=== PATIENT | male | born 1950 | race Caucasian/White ===

== ENCOUNTER 2018-09-18 05:55 | Inpatient (IN) | payer OTHER ==
[2018-09-18] MEDS ORDERED: ACETAMINOPHEN 500 MG TAB PO ONE (06:26)
[2018-09-18] MEDS ORDERED: GABAPENTIN 300 MG CAP PO ONE (06:26)
[2018-09-18] MEDS ORDERED: ceFAZolin 2 GM/DEXTROSE 100 ML IV ONE (06:26)
[2018-09-18] MEDS ORDERED: LR 1,000 ML IV ONE (06:27)
[2018-09-18] MEDS ORDERED: BUPIVACAINE 0.25% 30 ML SDV ONE (06:37)
[2018-09-18] MEDS ORDERED: BACITRACIN 50,000 UNITS/10 ML SYR IRR ONE (06:38)
[2018-09-18] MEDS ORDERED: EPINEPHrine 1 MG/ML INJ ONE (06:38)
[2018-09-18] MEDS ORDERED: CHLORHEXIDINE GLUC HIBICLENS 118 ML BTL TP ONE (06:38)
[2018-09-18] MEDS ORDERED: THROMBIN (BOVINE) 5,000 UNIT VIAL TP ONE (06:38)
[2018-09-18] MEDS ORDERED: MIDAZOLAM 2 MG/2 ML VIAL IVP ONE (06:42)
--- NOTE | 2018-09-18 06:42 | PDANEPAE ---
ANE History of Present Illness cervical radiculopathy here for acdf ANE Past Medical History - Cardiovascular History Hx Hypertension: Yes Hx Arrhythmias: No Hx Chest Pain: No Hx Coronary Artery / Peripheral Vascular Disease: No Hx CHF / Valvular Disease: No Hx Palpitations: No - Pulmonary History Hx COPD: No Hx Asthma/Reactive Airway Disease: No Hx Recent Upper Respiratory Infection: No Hx Oxygen in Use at Home: No Hx Sleep Apnea: No Sleep Apnea Screening Result - Last Documented: Negative - Neurologic History Hx Cerebrovascular Accident: No Hx Seizures: No Hx Dementia: No Neurologic History Comment: HEADACHES W/NECK - Endocrine History Hx Diabetes: No - Renal History Hx Renal Disorders: No - Liver History Hx Hepatic Disorders: No - Neurological & Psychiatric Hx Hx Neurological and Psychiatric Disorders: No - Cancer History Hx Cancer: No - Congenital Disorder History Hx Congenital Disorders: No - GI History Hx Gastrointestinal Disorders: No - Other Health History Other Health History: RHEUMATOID/OSTEO ARTHRITIS. AUTO IMMUNE NON-DISCLOSED HEPATITIS - LIVER 9 YRS AGO CLEARED SINCE. PAST DVT TIBURCIO LEGS - 10 YRS TXD W/ COUMADIN - NONE SINCE - Chronic Pain History Chronic Pain: Yes - Surgical History Prior Surgeries: CARPAL TUNNEL TIBURCIO. THUMB JOINT TIBURCIO. R SOL. HERNIA REPAIR. CATARACTS ANE Review of Systems Review of Systems: - Exercise capacity METS (RN): 5 METS ANE Patient History - Allergies Allergies/Adverse Reactions: No Known Allergies Allergy (Verified 09/18/18 06:28) - Home Medications Home Medications: Eszopiclone [Lunesta] 1.5 mg PO HS 06/18/10 [Last Taken Unknown] Etanercept [Enbrel] 50 mg SQ TU 09/09/18 [Last Taken Unknown] Ibuprofen [Motrin (*)] 400 mg PO TID PRN 09/09/18 [Last Taken Unknown] Irbesartan [Avapro 150 mg (*)] 150 mg PO DAILY 09/09/18 [Last Taken Unknown] Naproxen Sodium [Naproxen Sodium ER] 500 mg PO DAILY 09/09/18 [Last Taken Unknown] tiZANidine HCL [Zanaflex 2MG (*)] 2 - 4 mg PO TID PRN 09/09/18 [Last Taken Unknown] - NPO status NPO Status: no food or drink >8 hours - Anes Hx Anes Hx: no prior problems - Smoking Hx Smoking Status: Former smoker - Alcohol Use Alcohol Use: Occasionally - Family Anes Hx Family Anes Hx: none ANE Labs/Vital Signs - Vital Signs Vital Signs: reviewed preoperatively; see RN documention for details Height: 177.8 cm Weight: 81.647 kg ANE Physical Exam - Airway Neck exam: FROM Mallampati Score: Class 2 Mouth exam: normal dental/mouth exam Mouth image: 1 - missing - Pulmonary Pulmonary: no respiratory distress, clear to auscultation - Cardiovascular Cardiovascular: regular rate and rhythym, no murmur, rub, or gallop - ASA Status ASA Status: II ANE Anesthesia Plan Anesthesia Plan: general endotracheal anesthesia Lines/Monitors: arterial line, additional IV Total IV Anesthesia: Yes
[2018-09-18] MEDS ORDERED: PROPOFOL/EMULSION 500 MG/50 ML BOTTLE IV ONE ×2 (06:47→10:18)
[2018-09-18] MEDS ORDERED: REMIFENTANIL HCL 1 MG VIAL ONE ×2 (06:47→10:18)
[2018-09-18] MEDS ORDERED: fentaNYL 100 MCG/2 ML INJ ONE ×3 (06:47→12:34)
[2018-09-18] MEDS ORDERED: PROPOFOL 200 MG/20 ML VIAL ONE (06:47)
[2018-09-18] MEDS ORDERED: LIDOCAINE 2% 100 MG/5 ML SYR ONE (06:52)
[2018-09-18] MEDS ORDERED: ROCURONIUM 50 MG/5 ML VIAL ONE (06:52)
--- NOTE | 2018-09-18 06:55 | PDHPUP ---
History & Physical Update H&P update statement: This history and physical update is based on an assessment of the patient which was completed after admission or registration (within 24 hours), but prior to the surgery/procedure. H&P update: H&P reviewed & patient examined, no change in patient's condition since H&P completed, changes noted H&P changes: Exam. Awake. Alert. PERRL. EOMI. Facial expression symmetrical. Speech fluent. Lungs CTA. Heart RRR. DAMON, Following commands
[2018-09-18] MEDS ORDERED: PHENYLEPHRINE 10 MG/ML SDV ONE (08:31)
[2018-09-18] MEDS ORDERED: SURGIFLO MATRIX KIT WITH THROMBIN 8 ML TP ONE (09:06)
[2018-09-18] MEDS ORDERED: ACETAMINOPHEN 500 MG TAB PO PRN (12:00)
[2018-09-18] MEDS ORDERED: HYDROCODONE/APAP 5/325 TAB PO PRN (12:00)
[2018-09-18] MEDS ORDERED: ONDANSETRON 4 MG/2 ML VIAL IVP PRN ×2 (12:00→12:14)
[2018-09-18] MEDS ORDERED: NALOXONE HCL 0.4 MG/ML INJ IVP PRN (12:00)
[2018-09-18] MEDS ORDERED: oxyCODONE IR 5 MG TAB PO PRN (12:00)
[2018-09-18] MEDS ORDERED: PROMETHAZINE HCL 25 MG/ML INJ IVP PRN (12:00)
[2018-09-18] MEDS ORDERED: HYDROmorphONE/DILAUDID 2 MG/ML INJ IVP PRN (12:00)
--- NOTE | 2018-09-18 12:01 | POSTANESTH ---
Post Anesthetic Evaluation Cardiovascular Status: Normal, Stable, Similar to Pre-Op Cond Respiratory Status: Normal, Stable, Similar to Pre-op Cond. Level of Consciousness/Mental Status: Can Participate in Eval, Alert and Oriented Pain Control: Adequate, Prn Tx Ordered Nausea/Vomiting Control: Adequate, Prn Tx Ordered Complications Possibly Related to Anesthesia: None Noted
[2018-09-18] MEDS ORDERED: diphenhydrAMINE 25 MG CAP PO PRN (12:14)
[2018-09-18] MEDS ORDERED: LACTULOSE 20 GM/30 ML UDCUP PO PRN (12:14)
[2018-09-18] MEDS ORDERED: MAGNESIUM HYDROXIDE 30 ML UDCUP PO PRN (12:14)
[2018-09-18] MEDS ORDERED: BISACODYL 10 MG SUPP PR PRN (12:14)
[2018-09-18] MEDS ORDERED: POLYETHYLENE GLYCOL 3350 17 GM PKT PO PRN (12:14)
[2018-09-18] MEDS ORDERED: NS 1,000 ML IV SCH (12:15)
--- NOTE | 2018-09-18 12:23 | POSTOPPROG ---
Post Op Note Date of Operation: 09/18/18 Surgeon: Luciana Feliz Oil Pumper: Heather Valera PA-C Anesthesiologist: Dr Coronado Anesthesia: GET(General Endotracheal) Pre-op Diagnosis: cervical stenosis Post-op Diagnosis: cervical stenosis Procedure: ACDF C4-7 Inf/Abcess present in the surg proc area at time of surgery?: No Depth: Deep Incisional (Fascial) EBL: Minimal Drains: Chapito Cano Plan Plan: 68 yo male s/p ACDF C4-7 - neuro checks - pain control - advance diet as tolerated - JEAN PAUL drain - postop C-spine x-rays pending - hard collar - PT/OT/CONSTRUCTION PROJECT MGR - SCDs/TEDs, Lovenox to start POD#3 Exam Awake. Alert Following commands Muscle strength at 5/5 except for right deltoid at 4/5 Incision with dressing c/d/i
[2018-09-18] MEDS: fentaNYL 100 MCG/2 ML INJ IVP PRN ×2 (12:35→13:05)
[2018-09-18] MEDS ORDERED: METHOCARBAMOL 750 MG TAB ONE (12:52)
[2018-09-18] MEDS: METHOCARBAMOL 750 MG TAB PO PRN ×2 (13:18→19:55)
--- NOTE | 2018-09-18 13:25 | GOP ---
[f rep st] OPERATIVE REPORT DATE OF OPERATION: 09/18/2018 SURGEON: Luciana Feliz DO BIRTHING NURSE: Heather Valera PA-C. PREOPERATIVE DIAGNOSIS: 1. Cervical spondylitic myelopathy. 2. Cervical stenosis. POSTOPERATIVE DIAGNOSIS: 1. Cervical spondylitic myelopathy. 2. Cervical stenosis. PROCEDURE PERFORMED: 1. C3-4, C4-5, C5-6 anterior cervical diskectomies, interbody fusion with Medtronic anatomic pure ti tanium coated (PTC) interbody graft 9 x14 x 11 at C4-5, 8 x 14 x 11 at C5-6, 9 x 14 x 11 at C6-7, wit h anterior cervical plating C4-C7, with Medtronic Zevo plate 59 mm plate and three 5 x 13 mm screws a t C4, three 5 x 15 mm screws at C5, C6 and C7. 2. Autograft. 3. Microscope. FINDINGS: SPECIMENS: None. ESTIMATED BLOOD LOSS: 40 mL. INDICATIONS: This is a 68-year-old male with cervical spondylitic myelopathy with some weakness in h is arm, neck pain and arm pain, who has failed conservative management. Elected to move forward with L4-5, 5-6, 6-7 ACDF. He also has degenerative disk disease at 3-4, but is not symptomatic and this is less stenotic, elected as that would be a larger surgery for this patient who was already at risk for pseudoarthrosis secondary to RA and chronic biologic, as well as NSAID use. DESCRIPTION OF PROCEDURE: He was identified, consented. Sites were marked. Brought to the operatin g room, anesthetized under general endotracheal anesthesia. Pre-positioning and post-positioning bas elines were performed and were stable. Interscapular roll was placed. Head was placed in a Torres horseshoe in a neutral position. Shoulders were taped down and x-ray was taken, with an 18-gauge bl unt needle taped to the skin for the incision site. He was prepped and draped in the usual sterile f ashion. Incision was anesthetized with 0.25% Marcaine with epinephrine. Incision was made with a #1 0 blade. Hemostasis was obtained with bipolar cautery, dissecting through the platysma with Metjean-claude um scissors. We came along the medial border of the SCM, using the handheld Cloward, retracted the t rachea and esophagus medially, coming down to the prevertebral fascia. Cleared this with Kittners an d placed a bayoneted spinal needle. We were then at the C5-6 level. This was marked with a Bovie. We dissected upward and with a bayoneted spinal needle marked the C4-5, and then dissected down using Kittners, protecting with the Cloward bilaterally marked the C6-7 level. We then measured and place d a Shadow-Line retractor, placed 16 mm Grafton pins at C4 and C5, verified with the OR in the appropr iate position under x-ray. We placed it under distraction, brought in the microscope. Using the hig h-speed drill, drilled down the osteophytes being careful not to address any osteophytes at the 3-4 l evel secondary to not wanting to disturb or accelerate any further degenerative disease here. We fla ttened the osteophytes out and then used a high-speed drill to remove the disk and cartilaginous endp late coming down on the posterior longitudinal ligament, which was opened with a micro upgoing curett e. This was extended with a 1 Kerrison and then the 2 Koros were used to remove disk and osteophyte off the superior and inferior endplate and out bilateral lateral foramina until they were well decomp ressed, preserving the vascular layer above the nerve roots bilaterally. We then harvested autograft and measured a 9 x 14 x 11 graft with a trial and then packed this with the patient's own bone. We had sufficient bone. We tamped the graft into place. Under x-ray it was in good position. Neuro mo nitor remained stable. We then removed the Grafton pin superiorly, plugged the hole with a Gelfoam bu llet. We then moved the retractors down to the 4-5 level, placed the Grafton pin at 4-5, and took an x-ray, verifying it was in the appropriate position. Placed the patient under distraction, used a high-spee d drill to remove the anterior osteophytes and the disk and cartilaginous endplate from the superior and inferior endplates and opened the posterior longitudinal ligament with a micro upgoing curette. Extended this with a 1 Kerrison and used 2 Koros to remove the disk and osteophyte from the superior and inferior endplates and out bilateral lateral foramina. It should be noted that he was particular ly sensitive at this level, but neuro monitoring we stabilized. We then harvested autograft from the superior and inferior endplates, measured an 8 x 14 x 11 mm graft with the trial and then packed it with the patient's own bone, tamped it into place, verified it was in the appropriate position x-ray. Neuro monitor remained stable. We then removed the Grafton pin at C5 and plugged the hole with Gelf oam bullet. We dissected down. We had some difficulty placing district retraction at this level as the patient was very barrel-chested. However, we were able to place this and placed the Grafton pin a t C7. We then drilled down the osteophytes and then drilled the disk and cartilaginous endplate, ope janice the posterior longitudinal ligament with micro upgoing curette. Extended this with a 1 Kerrison and then removed the disk and osteophytes from the superior and inferior endplate out bilateral late ral foramina at C6-7 until we were well decompressed. Harvested autograft. Measured a 9 x 14 x 11 m m graft with the trial and then packed the graft with the patient's own bone, tamped into place. Und er x-ray we verified it was in the appropriate position. Neuro monitor remained stable. We then rem elaina the Grafton pins and plugged the holes with Gelfoam bullets. Meticulous hemostasis had been obta ined with Floseal. We then irrigated and then removed the microscope, removed the Shadow-Line retrac tor, brought in handheld cautery. Measured a 59 mm Zevo plate, placed a curve on it, placed it in th e appropriate position and then drilled the holes down the right side, placing a 13 mm screw at the C 4, as this is a smaller vertebral body within the superior and medial direction and a 15 mm screw inf eriorly in an inferior medial direction. These were in good position, and so we placed the middle sc rews at C5 and C6, in a directed and medial position with 15 mm screws. These were all verified to b e in good position. We then went to the opposite side and performed the same procedure, placing 13 mm screws at C4, a 15 at C5 and C6, and 15 at C7. Took final x-ray superiorly and inferiorly. We then inspected the plate which was lying flat against the cervical spine. Closed all of the locking devices. Copiously irri gated with gentamicin-infused saline filling the hole, verifying we had no air leaks or any other com plications. Meticulous hemostasis had been obtained which required a drain out inferiorly and placed it in the prevertebral space, inspecting the crenshaw on the way out. We closed the platysma with 2-0 Vicryl pop-offs, subcutaneous layer with 3-0 Vicryl pop-offs. It should be noted that the entire mack e we were under retraction cuff pressure was dropped to below 10 cm of water. We then closed the ski n with 4-0 running Monocryl and Steri-Strips, dressed the wound with gauze and Medipore tape. Suture d the drain with 2-0 Vicryl pop-offs, placed to bulb suction. The patient tolerated the procedure we ll. Neuro monitor remained stable. FLUIDS: 1300 mL crystalloid. URINE OUTPUT: None. DRAINS: One JEAN PAUL in the prevertebral space to bulb suction. COMPLICATIONS: None. /[id number]/MODL
--- NOTE | 2018-09-18 14:02 | PDMN ---
Medical Necessity Medical necessity: Pt meets inpt criteria per MD order and [facility], Cervical Fusion, Anterior, 68 y/o w/cerv stenosis admitted for ACDF C4-7 and post-op care , qualifies for inpt w/ACDF at 3 levels.
[2018-09-18] MEDS: oxyCODONE IR 5 MG TAB PO PRN ×4 (14:27→23:59)
[2018-09-18] MEDS: ceFAZolin 2 GM/DEXTROSE 100 ML IV SCH ×2 (15:42→23:59)
[2018-09-18] MEDS: SENNOSIDES/DOCUSATE SODIUM TAB PO SCH (19:55)
[2018-09-18] MEDS: ZOLPIDEM TARTRATE 5 MG TAB PO SCH (23:59)
[2018-09-19] MEDS: METHOCARBAMOL 750 MG TAB PO PRN ×4 (02:16→22:44)
[2018-09-19] MEDS: oxyCODONE IR 5 MG TAB PO PRN ×3 (04:19→19:42)
[2018-09-19] MEDS: IRBESARTAN 150 MG TAB PO SCH (08:08)
[2018-09-19] MEDS: SENNOSIDES/DOCUSATE SODIUM TAB PO SCH ×2 (08:09→22:40)
--- NOTE | 2018-09-19 09:14 | NEUSURGPN ---
Assessment/Plan: 68 yo male s/p ACDF C4-7. - neuro: Doing well with a decrease in numbness in his fingers and decreased pain in shoulders - pain control- Doing well on current regimen, a little nauseated this morning - advance diet as tolerated- soft foods going well - JEAN PAUL drain- output 70, may remove today will see what output does later on today - postop C-spine x-rays pending - hard collar - PT/OT/HEALTH INSPECTOR FOOD -Will see how therapy goes, and swallowing later today and could go home if tolerating po well, pain controlled and passes therapies - SCDs/TEDs, Lovenox to start POD#3 S: Doing well, has decrease in numbness on left hand and decrease in pain in shoulders. ROM slightly improved as well. Is somewhat nauseated from taking meds on empty stomach and light headed. Exam: NAD, VSS PERRL, EOMI CN II-XII grossly intact speech fluet Following commands Muscle strength at 5/5 except for right deltoid at 4+/5(improved) Incision with dressing c/d/i JEAN PAUL X1 with minimal serosang in bulb Catheter Insertion Date: 09/18/18 - Physician Discussed Patient with .: Trini Patient Seen by : Trini Neurosurgery Physical Exam - Vitals, I&O, Labs I and O 09/18/18 09/19/18 09/20/18 05:59 05:59 05:59 Intake Total 855 Output Total 2395 Balance -1540 Weight 81.647 kg Intake: Oral (ml) 100 IV Intake (ml) 650 IV Infused (ml) 105 ceFAZolin 2 GM/DEXTROSE 105 100 ml @ 200 mls/hr IV Q8H [facility] Rx#:[id number] Output: Urine (ml) 2275 Catheter 2275 Estimated Blood Loss (ml) 50 JEAN PAUL Drain Output (ml) 70 #1 Right Anterior Neck 70 Chapito Cano Vital Signs Temp Pulse Resp BP Pulse Ox 36.8 C 69 17 134/88 H 91 L 09/19/18 07:47 09/19/18 07:47 09/19/18 07:47 09/19/18 07:47 09/19/18 08:06 ICD10 Worksheet Patient Problems: Problems Problem Status Onset Cervical stenosis of spinal canal Acute - ICD10 Problem Qualifiers (1) Cervical stenosis of spinal canal
[2018-09-19] MEDS: ONDANSETRON DISINTEGRATING 4 MG TAB PO PRN ×2 (10:15→12:24)
--- NOTE | 2018-09-19 16:14 | ASMTCMCOM ---
CM Note CM Note Notes: Pt had planned surgery for cervical stenosis, resides with spouse. 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 CM to follow for d/c planning. D/c plan of care is TBD Date Signed: 09/19/2018 04:13 PM Electronically Signed By:PIETRO Calle
[2018-09-19] MEDS: ZOLPIDEM TARTRATE 5 MG TAB PO SCH (22:40)
[2018-09-20] MEDS: oxyCODONE IR 5 MG TAB PO PRN (01:08)
--- NOTE | 2018-09-20 06:40 | CPEKG ---
Test Reason : OPEN Blood Pressure : / mmHG Vent. Rate : 074 BPM Atrial Rate : 074 BPM P-R Int : 165 ms QRS Dur : 128 ms QT Int : 403 ms P-R-T Axes : 031 -54 -25 degrees QTc Int : 448 ms Sinus rhythm RBBB and LAFB Confirmed by Bobby Aponte ([id number]) on 09/20/2018 6:39:53 AM Referred By: Luciana Feliz Confirmed By:Bobby Aponte
--- NOTE | 2018-09-20 07:16 | NEUSURGPN ---
Date of Surgery: 09/18/18 Post Op Day: 2 Assessment/Plan: 68 yo male s/p ACDF C4-7. - neuro stable - pain control: would like to try Morven rather than Oxycodone - tolerating a diet - remove JEAN PAUL drain today - postop C-spine x-rays with hardware in good placement - hard collar - PT/OT/REHABILITATION ASSISTANT - SCDs/TEDs, Lovenox to start POD#3 - Home today Discussed with Dr. Feliz. Subjective: Doing well this morning. Strength improving. Tingling in right hand improved. Objective: Awake. Alert. PERRL. EOMI Muscle strength full at 5/5 except for right deltoid at 4+/5 Sensation intact Catheter Insertion Date: 09/18/18 - Physician Discussed Patient with : Trini Neurosurgery Physical Exam - Vitals, I&O, Labs I and O 09/19/18 09/20/18 09/21/18 05:59 05:59 05:59 Intake Total 855 400 Output Total 2395 615 Balance -1540 -215 Weight 81.647 kg Intake: Oral (ml) 100 400 IV Intake (ml) 650 IV Infused (ml) 105 ceFAZolin 2 GM/DEXTROSE 105 100 ml @ 200 mls/hr IV Q8H [facility] Rx#:[id number] Output: Urine (ml) 2275 600 Catheter 2275 Urinal 600 Estimated Blood Loss (ml) 50 JEAN PAUL Drain Output (ml) 70 15 #1 Right Anterior Neck 70 15 Chapito Cano Other: Number of Voids Toilet 1 Urinal 1 Vital Signs Temp Pulse Resp BP Pulse Ox 36.8 C 65 17 124/87 H 94 09/20/18 03:47 09/20/18 03:47 09/20/18 03:47 09/20/18 03:47 09/20/18 03:47 ICD10 Worksheet Patient Problems: Problems Problem Status Onset Cervical stenosis of spinal canal Acute
[2018-09-20] MEDS ORDERED: HYDROCODONE/APAP 5/325 TAB PO PRN (07:17)
[2018-09-20 08:37] VITALS: BP 125/71
[2018-09-20] MEDS: SENNOSIDES/DOCUSATE SODIUM TAB PO SCH (09:33)
[2018-09-20] MEDS: IRBESARTAN 150 MG TAB PO SCH (09:35)
[2018-09-20] MEDS: METHOCARBAMOL 750 MG TAB PO PRN (09:37)
--- NOTE | 2018-09-20 11:09 | ASDISCHSUM ---
Discharge Information Plan Status:Home with No Needs Medically Cleared to Leave: Discharge Date:09/20/2018 11:05 AM CM D/C Disposition:Home, Routine, Self-Care ADT D/C Disposition:Home, Routine, Self-Care Projected Discharge Date:09/20/2018 11:05 AM Transportation at D/C:Family Discharge Delay Reason: Follow-Up Date:09/20/2018 11:05 AM Discharge Slot: Final Diagnosis: Placement Information Patient Contact Information Contact Name:LISE Relationship: Address:[address] City:[place] Alternate Phone: [facility] Code:[place] [address] Email: Financial Information Financial Class:HMO and PPO Plans Primary Plan Desc:[employer] Primary Plan Number:[id number] Secondary Plan Desc: Secondary Plan Number: Assessment Information LACE LACE Length of stay for Answers: 1 day current admission Acuity / Level of Answers: Yes Care: Did the patient have an inpatient admission? Comorbidities - select Answers: Opioid dependence all that apply / Chronic pain Other Notes: HTN; DVT # of Emergency department Answers: 0 visits in the last 6 months Score: 9 Date Signed: 09/20/2018 11:07 AM Electronically Signed By:Shruti Mccord RN [facility] CM Progress Note CM Note CM Note Notes: Pt had planned surgery for cervical stenosis, resides with spouse. 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 CM to follow for d/c planning. D/c plan of care is TBD Date Signed: 09/19/2018 04:13 PM Electronically Signed By:PIETRO Calle [facility] CM Progress Note CM Note CM Note Notes: Reviewed all therapy recs, patient has been cleared for home. Met with patient and to confirm there are no needs on d/c. Patient has received a list of loan closets and will obtain all needed DME, shower chair, etc. Patient will f/u/w surgeon in two weeks and start outpatient therapy. D/W RN. CM available should needs arise. Plan: Independent Date Signed: 09/20/2018 11:06 AM Electronically Signed By:Shruti Mccord RN Intervention Information
[2018-09-21] MEDS ORDERED: ENOXAPARIN 40 MG/0.4 ML SYR SC SCH (09:00)
--- NOTE | 2018-09-25 14:52 | GDS ---
[f rep st] DISCHARGE SUMMARY ADMITTING DIAGNOSIS: Cervical stenosis with myelopathy. DISCHARGE DIAGNOSIS: Cervical stenosis with myelopathy. PROCEDURE PERFORMED: Anterior cervical diskectomy and fusion at C3-4, C4-5 and C5-6. CONSULTS: Physical, Occupational and Speech Therapy. HOSPITAL COURSE: The patient is a 68-year-old male who elected to proceed with anterior cervical dis kectomy and fusion at C4-5, C5-6 and C6-7. He underwent surgery by Dr. Luciana Feliz on September 18 9, without any complications. Following surgery, he was transferred to the floor for further pain co ntrol and neurological checks. He was fitted with a cervical hard collar. JEAN PAUL drain was removed once output was reduced on postop day 2. He was seen by Physical, Occupational, and Speech Therapy. Onc e he was tolerating a diet, voiding without difficulty, pain controlled and he was medically stable, he was deemed suitable for discharge. He was discharged to home on September 20, 2018. DISCHARGE INSTRUCTIONS: Patient was asked to wear his cervical hard collar at all times except he ma y remove when showering. He needs to refrain from NSAIDs as these inhibit the bone growth and fusion process. He will follow up with Dr. Luciana Feliz in 2 weeks for suture removal and wound check. He needs to refrain from lifting any more than 10 pounds. /[id number]/MODL
== END 2018-09-20 11:05 | disposition home or self-care (01) | DRG 473 ==
LOC: F3E 05:55 → F3N 13:54
PROVIDERS: ADMIT Neurological Surgery; ATTEND Neurological Surgery
PROC: 0RT30ZZ Resection of Cervical Vertebral Disc, Open Approach (ICD-10-PCS; principal; 2018-09-18 07:30)
PROC: 00NW0ZZ Release Cervical Spinal Cord, Open Approach (ICD-10-PCS; principal; 2018-09-18 07:30)
PROC: 4A1004G Monitoring of Central Nervous Electrical Activity, Intraoperative, Open Approach (ICD-10-PCS; principal; 2018-09-18 07:30)
PROC: 0RG20A0 Fusion of 2 or more Cervical Vertebral Joints with Interbody Fusion Device, Anterior Approach, Anterior Column, Open Approach (ICD-10-PCS; principal; 2018-09-18 07:30)
DX: M47.12 Other spondylosis with myelopathy, cervical region (principal); I10 Essential (primary) hypertension; R51 Headache; M06.9 Rheumatoid arthritis, unspecified; Z86.718 Personal history of other venous thrombosis and embolism; Z79.01 Long term (current) use of anticoagulants; Z87.891 Personal history of nicotine dependence
CPT/HCPCS: 92610-GN; 97116-GP; 97161-GP; 97166-GO; 97530-GP; 97535-GO; C1713; J0171; J0690; J2001; J2250; J2370; J2704; J3010